=== PATIENT | male | born 2000 | race Caucasian/White ===

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

== ENCOUNTER 2020-10-05 20:08 | Emergency (ER) | payer OTHER ==
[~2020-10-05] VITALS: Ht 170.1 cm; Wt 86.2 kg
[2020-10-05 20:30] VITALS: BP 153/71
[2020-10-05] MEDS ORDERED: METHOCARBAMOL750 M1 PO (20:47)
[2020-10-05] MEDS ORDERED: NAPROSYN500 MG PO (20:47)
== END 2020-10-05 21:03 | disposition home or self-care (01) ==
LOC: ED 20:08
DX: M54.6 Pain in thoracic spine (principal); F17.200 Nicotine dependence, unspecified, uncomplicated; V89.2XXA Person injured in unspecified motor-vehicle accident, traffic, initial encounter; Y93.I9 Activity, other involving external motion; Y92.488 Other paved roadways as the place of occurrence of the external cause; Y99.8 Other external cause status

== ENCOUNTER → 2023-05-07 | Outpatient (CLI) | payer OTHER ==
[~2023-05-07] MED LIST changes: +METHOCARBAMOL750 M1 PO; +NAPROSYN500 MG PO
== END | disposition home or self-care (01) ==
LOC: RAD 11:43
PROVIDERS: ATTEND Family Medicine
DX: J98.4 Other disorders of lung (principal); J18.9 Pneumonia, unspecified organism

== ENCOUNTER 2024-12-19 19:48 | Emergency (ER) | payer OTHER ==
[~2024-12-19] VITALS: Ht 172.7 cm; Wt 95.3 kg
[2024-12-19 20:04] VITALS: BP 133/69
[2024-12-19 20:34] LABS: BASO # 0.1 10*3/uL (0.0-0.1); BASO % 1.0 % (0.0-1.0); EOS # 0.3 10*3/uL (0.0-0.4); EOS % 3.9 % (1.0-4.0); MEAN CELL VOLUME 87.4 fl (80.0-94.0); MEAN CORPUSCULAR HGB 30.6 pg (27.0-31.0); MEAN PLATELET VOLUME 11.1 fl (9.6-12.3); MONO # 0.8 10*3/uL (0.1-1.0); MONO % 9.3 % (3.0-9.0); NEUT # 4.3 10*3/uL (2.3-7.9); NEUT % 51.4 % (47.0-73.0); NUCLEATED RED BLOOD CELL 0.0 % (0.0-0.0); NUCLEATED RED BLOOD CELL 0.0 10*3/uL (0.0-0.0); PLATELET COUNT AUTOMATED 254 10*3/uL (130-400); RED CELL DISTRI WIDTH 11.4 % (0-14.5)
[2024-12-19 21:04] LABS: BUN 11 mg/dl (9-23)
== END 2024-12-19 22:48 | disposition home or self-care (01) ==
LOC: ED 19:48
PROVIDERS: Internal Medicine
DX: K59.00 Constipation, unspecified (principal); R11.2 Nausea with vomiting, unspecified; F17.200 Nicotine dependence, unspecified, uncomplicated; Z79.899 Other long term (current) drug therapy